=== PATIENT | male | born 1975 | race African-American/Black ===

== ENCOUNTER 2023-04-07 13:40 | Emergency (ER) | payer BC, OTHER ==
[2023-04-07 13:50] VITALS: BP 154/90; PULSE 106; RESP 19; TEMP 99.1; BMI 44.7
[2023-04-07] MEDS ORDERED: ACETAMINOPHEN 500 MG TABLET (FP) PO ONE (18:50)
[2023-04-07] MEDS ORDERED: KETOROLAC TROMETHAMINE 30 MG/1 ML VIAL IM ONE (18:50)
[2023-04-07] MEDS ORDERED: ACETAMINOPHEN 325 MG TABLET (FP) ONE (18:53)
[2023-04-07] MEDS ORDERED: KETOROLAC TROMETHAMINE 30 MG/1 ML VIAL ONE (18:54)
== END 2023-04-07 19:50 | disposition home or self-care (01) ==
LOC: JER 13:40
PROC: 3E0233Z Introduction of Anti-inflammatory into Muscle, Percutaneous Approach (ICD-10-PCS; principal; 2023-04-07)
DX: M25.561 Pain in right knee (principal); M25.571 Pain in right ankle and joints of right foot; K40.90 Unilateral inguinal hernia, without obstruction or gangrene, not specified as recurrent; N43.3 Hydrocele, unspecified; I86.1 Scrotal varices; M17.11 Unilateral primary osteoarthritis, right knee
CPT/HCPCS: 73562-TC-RT-FY; 73610-TC-RT-FY; 76870-TC; 93971-TC; 99284-25

== ENCOUNTER 2024-03-19 12:09 | Emergency (ER) | payer BC, OTHER ==
[2024-03-19 12:15] VITALS: RESP 18; BMI 47.5
[2024-03-19] MEDS ORDERED: IBUPROFEN 400 MG TABLET (FP) PO ONE (12:34)
[2024-03-19] MEDS: IBUPROFEN 400 MG TABLET (FP) PO ONE (12:37)
[2024-03-19 12:56] LABS: EPI CELLS 13 /uL (0-25.1); HYALINE CASTS 0 /uL (0-3.1); URINE APPEARANCE CLEAR; URINE BACTERIA 31 /uL (0-1359); URINE BILIRUBIN NEGATIVE (NEGATIVE); URINE COLOR YELLOW; URINE GLUCOSE (UA) NEGATIVE (NEGATIVE); URINE KETONE NEGATIVE (NEGATIVE); URINE LEUK ESTERASE NEGATIVE (NEGATIVE); URINE NITRITE NEGATIVE (NEGATIVE); URINE PROTEIN 1+ (NEGATIVE); URINE RBC 128 /uL (0-23.9); URINE WBC 15 /uL (0-25.8)
[2024-03-19] MEDS ORDERED: morphine SULFATE 4 MG/ML VIAL ONE (12:57)
[2024-03-19 13:06] LABS: EOS % 2.5 % (0-4.5); HEMATOCRIT 39.8 % (35.4-49); HEMOGLOBIN 13.3 GM/dL (11.7-16.9); LYMPH % 27.8 % (8-40); MCH 31.1 pg (25.7-33.7); MCHC 33.3 g/dl (32.0-35.9); MEAN CELL VOLUME 93.5 fl (80-96); MEAN PLT VOLUME 6.7 fl (7.5-11.1); MONO % 8.7 % (3.8-10.2); PLATELET COUNT 324 10^3/uL (134-434); RBC 4.26 M/mm3 (4.00-5.60); RDW 12.9 % (11.9-15.9); WHITE BLOOD COUNT 7.6 K/mm3 (4.0-10.0)
[2024-03-19] MEDS: morphine CARPU-JECT 4 MG/1 ML DISP.SYRIN IVPUSH ONE (13:07)
[2024-03-19 13:24] LABS: POTASSIUM 4.2 mmol/L (3.5-5.1)
[2024-03-19 13:26] LABS: CALCIUM 9.2 mg/dL (8.5-10.1)
[2024-03-19 13:27] LABS: ALBUMIN 3.9 g/dl (3.4-5.0); BLOOD UREA NITROGEN 10.8 mg/dL (7-18)
[2024-03-19 13:30] LABS: CREATININE 1.2 mg/dL (0.55-1.3)
[2024-03-19 13:31] LABS: TOT PROT 7.6 g/dl (6.4-8.2)
[2024-03-19 13:32] LABS: BILIRUBIN,TOTAL 0.6 mg/dL (0.2-1)
[2024-03-19] MEDS ORDERED: CEFTRIAXONE 1 GM/50 ML BAG ONE (16:00)
[2024-03-19 17:32] VITALS: BP 150/73; PULSE 80; TEMP 98.8
== END 2024-03-19 18:55 | disposition home or self-care (01) ==
LOC: JER 12:09
PROC: 3E03329 Introduction of Other Anti-infective into Peripheral Vein, Percutaneous Approach (ICD-10-PCS; principal; 2024-03-19)
PROC: 3E033NZ Introduction of Analgesics, Hypnotics, Sedatives into Peripheral Vein, Percutaneous Approach (ICD-10-PCS; 2024-03-19)
DX: N50.89 Other specified disorders of the male genital organs (principal); N50.812 Left testicular pain
CPT/HCPCS: 36415; 74177-TC; 76870-TC; 80053; 81003; 82105; 85025; 87086; 99285-25

== ENCOUNTER 2024-11-11 10:31 | Emergency (ER) | payer BC, OTHER ==
[2024-11-11 10:48] VITALS: BP 150/85; PULSE 74; RESP 18; TEMP 97.8; BMI 45.3
[2024-11-11] MEDS ORDERED: IBUPROFEN 400 MG TABLET (FP) PO ONE (12:25)
[2024-11-11] MEDS ORDERED: predniSONE 10 MG TABLET (UD) ONE (12:26)
[2024-11-11] MEDS ORDERED: predniSONE 20 MG TABLET (UD) ONE (12:26)
[2024-11-11] MEDS: predniSONE 20 MG TABLET (UD) PO ONE (12:31)
[2024-11-11] MEDS: IBUPROFEN 400 MG TABLET (FP) PO ONE (12:31)
[2024-11-12] MEDS ORDERED: predniSONE 20 MG TABLET (UD) PO ONE (12:15)
== END 2024-11-11 15:52 | disposition home or self-care (01) ==
LOC: JERFT 10:31
DX: M79.662 Pain in left lower leg (principal); M79.89 Other specified soft tissue disorders
CPT/HCPCS: 36415; 73610-TC-LT-FY; 73630-TC-LT; 84550; 93971-TC; 99285-25